=== PATIENT | female | born 1980 | race Caucasian/White ===

== ENCOUNTER 2017-01-26 16:32 | Observation (INO) ==
[2017-01-26] MEDS ORDERED: GLUCAGON SUBQ ONE (18:02)
--- NOTE | 2017-01-26 19:05 | PROVIDER DOCUMENTATION ---
HPI-EENT General - General Chief Complaint: Foreign Body Stated Complaint: COUGHING,CANT BREATHE,TROUBLING SWALLOWING Time Seen by Provider: 01/26/17 17:51 Source: patient Allergies/Adverse Reactions: Patient Allergies Allergy/AdvReac Type Severity Reaction Status Date / Time aspirin Allergy Mild RASH Verified 01/26/17 18:56 latex Allergy Mild RASH Verified 01/26/17 18:56 Penicillins Allergy Mild RASH Verified 01/26/17 18:56 Home Medications: Home Medication List Medication Instructions Recorded Confirmed Last Taken Type Citalopram Hydrobromide 20 mg PO DAILY 01/26/17 01/26/17 01/26/17 History [Citalopram HBr] - History of Present Illness-EENT General Nature of Presenting Problem: "I ATE SOME CHICKEN AND [place] FRIES ABOUT 2 THIS AFTERNOON AND I FELT LIKE IT GOT STUCK. I'VE HAD TROUBLE WITH THIS BEFORE AND I'VE HAD TO HAVE MY ESOPHAGUS STRETCHED." (ABOUT 3 YEARS AGO) EENT Location: reports: throat (REPORTS DIFFICULTY KEEPING SECRETIOND DOWN. "I CAN SWALLOW BUT IT JUST WON'T STAY DOWN.") Quality of Pain: reports: none Severity: reports: mild Timing: reports: still present Prearrival Treatment: Initiated no prearrival treatment Associated Symptoms: reports: denies symptoms, voice change (RASPY VOICE). denies: cough, drooling, facial pain/swelling Locality of Occurance: Home Similar Symptoms Previously?: Yes ("ESOPHAGUS NEEDED STRETCHING") Recently seen or treated by another doctor?: No - Eyes Eye Problem Context: reports: none - Ears Ear Problem Symptoms: reports: none - Nose Nose Problem Symptoms: nosebleed - Throat/Dental Throat/Dental Problem Symptoms: reports: none Recently seen a dentist or have an appointment?: No Review of Systems - Adult - REVIEW OF SYSTEMS - ADULT Constitutional: reports: no symptoms reported Eyes: reports: no symptoms reported Ears, Nose, Mouth & Throat: reports: see HPI Cardiovascular: reports: no symptoms reported Respiratory: reports: no symptoms reported Gastrointestinal: reports: see HPI Genitourinary: reports: no symptoms reported Musculoskeletal: reports: no symptoms reported Integumentary: reports: no symptoms reported Neurological: reports: no symptoms reported Psychiatric: reports: no symptoms reported Endocrine: reports: no symptoms reported Hematologic/Lymphatic: reports: no symptoms reported Allergic/Immunologic: reports: no symptoms reported All Other Systems: Reviewed and Negative Past History - Adult - PAST MEDICAL HISTORY-ADULT Review of Records: reports: Nursing Assessment Review, Medications Reviewed, Social history reviewed & non-contributory. Major Childhood Illnesses: reports: denies history Cardiovascular: reports: denies history Respiratory: reports: asthma Gastrointestinal: reports: GERD, other (ESOPHAGEAL DILATION--DR. JETER) Obstetrical/Gynecological: reports: denies history Genitourinary: reports: denies history Musculoskeletal: reports: denies history Neurological: reports: denies history Psychiatric: reports: depression Endocrine/Immune: reports: denies history Other Conditions: reports: denies history - PRIOR SURGERIES/PROCEDURES Surgical/Procedure History: reports: cholecystectomy, tonsillectomy, other ( FUNDOPLICATION) - PRIOR HOSPITALIZATIONS Prior Hospitalizations: reports: none - IMMUNIZATION STATUS Childhood Immunizations: See Nurse Assessment Flu Vaccine: See Nurse Assessment - FAMILY HISTORY Family History: CAD under 55yo - SOCIAL HISTORY Smoking: denies Substance Use: none/never Alcohol Use Frequency: never Living Situation: alone Physical Exam- EENT - Physical Exam EENT Initial Vital Signs Reviewed: Yes General Appearance: appears well, alert Progress - PLAN OF CARE/RESULTS Progress/Plan/Lab Results: Vital Signs - 8 hr 01/26/17 17:02 01/26/17 21:35 Temperature 99.4 F Pulse Rate 102 H 89 Respiratory Rate 18 19 Blood Pressure 154/97 135/95 O2 Sat by Pulse Oximetry 98 100 Laboratory Results - last 24 hr 01/26/17 01/26/17 20:15 20:15 WBC 12.77 H RBC 4.47 Hgb 13.3 Hct 40.8 MCV 91.3 MCH 29.8 MCHC 32.6 L RDW Std Deviation 14.4 Plt Count 283 MPV 10.2 Immature Gran % (Auto) 0.2 Neut % (Auto) 79.4 H Lymph % (Auto) 14.8 L Polk % (Auto) 4.0 Eos % (Auto) 1.4 Baso % (Auto) 0.2 Immature Gran # (Auto) 0.03 Neut # (Auto) 10.14 H Lymph # (Auto) 1.89 Polk # (Auto) 0.51 Eos # (Auto) 0.18 Baso # (Auto) 0.02 Sodium 142 Potassium 3.2 L Chloride 104 Carbon Dioxide 28 Anion Gap 10 BUN 8 Creatinine 0.6 Estimated GFR/1.73 m2 > 60 BUN/Creatinine Ratio 13 Glucose 141 H Calculated Osmolality 284 Calcium 8.8 Total Bilirubin 0.18 L AST 18 ALT 15 Alkaline Phosphatase 98 Total Protein 7.2 Albumin 4.0 Globulin 3.2 Albumin/Globulin Ratio 1.3 Orders Category Date Time Status Saline Loc NOW Care 01/26/17 18:01 Active CBC WITH DIFF [HEME] Stat Lab 01/26/17 20:15 Completed COMPREHENSIVE METABOLIC PANEL [CHEM] Stat Lab 01/26/17 20:15 Completed Glucagon Med 01/26/17 18:02 Discontinued 1 mg SUBQ NOW ONE Meperidine [Demerol] Med 01/26/17 19:57 Discontinued 50 mg IM NOW ONE INITIALLY DISCUSSED HISTORY, PRESENTATION AND FINDINGS WITH DR. LOJA. WILL GIVE GLUCAGON AND IF NO IMPROVEMENT, CALL GI. AFTER GLUCAGON--30 MIN[address]ES [address] CHALLENGE---CONTINUES ABLE TO SWALLOW BUT AFTER 5 MINUTES--VOMITS. 1958--SPOKE TO DR. JETER--DISCUSSED HISTORY, PRESENTATION AND FINDINGS -- AWARE OF NO IV AFTER MULTIPLE ATTEMPTS AND REQUESTS TO GIVE DEMEROL 50 MG IM THEN REST 30-45 MINUTES--TRY P.O. CHALLENGE. IF ABLE TO RETAIN FLUIDS WILL DO EGD OUTPATIENT TOMORROW. IF CONTINUES UNABLE TO RETAIN P.O., ADMIT TO HOSPITALIST --- CALL BACK TO INFORM DR. JETER EITHER WAY. DISCUSSED PLAN OF CARE WITH PATIENT AND FRIEND. [address] CHALLENGE - AFTER DEMEROL GIVEN FOR 45 MINUTES. SWALLOWS W/ O DIFFICULTY BUT AFTER 5 MINUTES VOMITS WATER. PAGED HOSPITALIST AND DR. JETER. Result Diagrams: 01/26/17 20:15 01/26/17 20:15 - CONSULTS/PCP/HOSPITALIST Notification #1 *Consult/PCP/Hospitalist*: DR. JOLLY Time Discussed: 09:35 Reason/Comments: ADMIT TO HOSPITALIST DR. JOLLY. DR. JETER CONSULT EGD IN AM. Consult Disposition: Admit Departure - Departure Date of Disposition Decision: 01/26/17 Time of Disposition Decision: 21:26 DIAGNOSIS: Sensation of foreign body in esophagus Disposition: ADMITTED INPATIENT 09 Certified Medical Emergency: Emergent Condition: Stable Referrals and Follow-Ups: IZZY,KELLIE L., CREDIT AND COLLECTIONS ANALYST [Primary Care Provider] - - Critical Care Note This patient required my direct & personal management of CC.: No
[2017-01-26] MEDS ORDERED: DEMEROL IM ONE (19:57)
[2017-01-26 20:16] LABS: MANUAL DIFF NEEDED? NO
[2017-01-26 20:32] LABS: BASO% 0.2 % (0.0-0.8); EOS# 0.18 X1000 (0.0-0.7); EOS% 1.4 % (0.0-10.0); HEMATOCRIT 40.8 % (37.0-47.0); HEMOGLOBIN 13.3 g/dL (12.0-16.0); IMM GRAN# 0.03 X1000 (0.0-0.04); IMM GRAN% 0.2 % (0.0-0.5); LYMPH# 1.89 X1000 (1.2-3.4); LYMPH% 14.8 % (20.5-51.1); MCH 29.8 PG (27-31); MCHC 32.6 g/dL (33-37); MCV 91.3 FL (81-99); MONO# 0.51 X1000 (0.11-0.59); MPV 10.2 FL (7.4-10.4); NEUT% 79.4 % (42.2-75.2); PLT 283 X1000 (130-400); RBC 4.47 XMIL (4.2-5.4)
[2017-01-26 20:44] LABS: AGAP 10; ALKALINE PHOSPHATASE 98 U/L (32-104); BUN 8 mg/dL (8-22); CALCIUM 8.8 mg/dL (8.8-10.2); CHLORIDE 104 mmol/L (98-107); COSMO 284; GOT 18 U/L (10-30); GPT 15 U/L (10-36); POTASSIUM 3.2 mmol/L (3.5-5.1); SODIUM 142 mmol/L (136-145); TCO2 28 mmol/L (25-35); TOTAL BILIRUBIN 0.18 mg/dL (0.20-1.00); TOTAL PROTEIN 7.2 g/dL (6.3-8.3)
[2017-01-26] MEDS ORDERED: ZOFRAN PO ONE (21:40)
[2017-01-26] MEDS ORDERED: ZOFRAN ODT PO ONE (21:49)
[2017-01-26] MEDS ORDERED: ZOFRAN IV PRN (23:12)
[2017-01-26 23:35] LABS: HEMOGLOBIN A1C 4.7 % (4.8-6.0)
[2017-01-27] MEDS: POTASSIUM CHLORIDE 20 MEQ/SWI 20 MEQ/100 ML IVPB IV SCH ×2 (00:28→04:01)
[2017-01-27] MEDS: NS 1,000 ML IV SCH ×2 (00:28→08:15)
[2017-01-27] MEDS: MORPHINE IV PRN ×2 (00:38→08:14)
[2017-01-27] MEDS ORDERED: PROTONIX IV SCH (01:30)
[2017-01-27] MEDS ORDERED: SODIUM CHLORIDE 0.9% INJ SCH (01:30)
--- NOTE | 2017-01-27 03:13 | HISTORY AND PHYSICAL ---
PRIMARY CARE PROVIDER: Dr. Farrar in [place]. CHIEF COMPLAINT: Difficulty swallowing. HISTORY OF PRESENT ILLNESS: A 36-year-old female with a history of achalasia status post Heller myotomy who presents to the emergency room after eating chicken and comor[place] fries around 2 p.m. today. She felt as if her food did not go down totally. She had vomiting and then subsequent shortness of breath secondary to frequent vomiting. She came into the emergency room secondary to having a history of this and was feeling as if she still had a food impaction in her esophagus. Dr. Moreno was spoken to, who is her primary military source operations specialist. She received glucagon as well as Demerol in the emergency room hoping that this would relax the esophagus. It did not. Dr. Moreno will be consulted and the patient will be admitted for further evaluation and treatment. REVIEW OF SYSTEMS: Fourteen point review of systems conducted with the patient. Pertinent positives listed above in the HPI. All other systems reviewed and found to be negative. PAST MEDICAL HISTORY: 1. Achalasia. 2. Depression. 3. Asthma. 4. Obesity. PREVIOUS SURGICAL HISTORY: 1. Cholecystectomy. 2. Esophageal dilation. 3. Heller myotomy. 4. Duarte gastrostomy. 5. Witzel feeding jejunostomy placement. 6. Tonsillectomy. SOCIAL HISTORY: No history of tobacco, alcohol or illicit drug use or abuse. FAMILY HISTORY: Mother and brother both had diabetes mellitus, hypertension and congestive heart failure. Brother at age 47 from a massive myocardial infarction. ALLERGIES: Aspirin, penicillin and latex. HOME MEDICATIONS: Celexa 20 mg p.o. daily and multivitamin 1 p.o. daily. PHYSICAL EXAMINATION: VITAL SIGNS: Temperature 99.4 degrees, pulse 89, respirations 19, blood pressure 135/95, oxygen saturation 100% on room air. GENERAL: Pleasant 36-year-old female lying in the ER stretcher. Answers all questions appropriately. In no acute distress. HEENT: Head is atraumatic, normocephalic. Pupils equal, round, reactive to light. Extraocular eye movement intact. Sclerae is anicteric. Conjunctivae is pink. Oral mucosa is moist. NECK: Supple. No JVD. No thyromegaly. Trachea is midline. No cervical lymphadenopathy. CARDIAC: Regular rate and rhythm. S1-S2 appreciated. No murmurs, gallops, rubs. LUNGS: Clear to auscultation bilaterally. No rhonchi, wheezes or rales. Symmetrical rise and fall with respirations. ABDOMEN: Protuberant, soft, nondistended, nontender. Bowel sounds present in all 4 quadrants, normoactive. No pulsatile mass. No organomegaly. EXTREMITIES: No clubbing, cyanosis, or edema. 2+ pedal pulses bilaterally. NEUROLOGICAL: Alert and oriented x3. Cranial nerves 2-12 grossly intact. LABORATORY DATA: WBC 12.77, hemoglobin 13.3, hematocrit 40.8, platelet count 283,000. Sodium 142, potassium 3.2, chloride 102, carbon dioxide 28, BUN 8, creatinine 0.6, glucose 141. ASSESSMENT AND PLAN: 1. Dysphagia with a history of achalasia and previous Heller myotomy. 2. Probable food impaction. 3. Hypokalemia. 4. Depression. PLAN: Admit patient to the medical floor. We will treat hypokalemia with 40 mEq of KCl. Consult Dr. Moreno for endoscopy. Hold patient NPO. Normal saline at 100 mL an hour. Zofran as needed for nausea. Further recommendation based on patient clinical course. Dictated by GILBERT Jovel for Moses Gurrola MD cc: GILBERT Jovel MD Babu Kantamneni, MD Natalie McCay pt examined, agree with above, hopefully after EGD tomorrow [facility] MTDD
[2017-01-27 06:50] LABS: MANUAL DIFF NEEDED? NO
[2017-01-27 06:54] LABS: BASO% 0.3 % (0.0-0.8); EOS% 2.3 % (0.0-10.0); HEMATOCRIT 39.6 % (37.0-47.0); HEMOGLOBIN 12.9 g/dL (12.0-16.0); LYMPH# 2.26 X1000 (1.2-3.4); LYMPH% 25.8 % (20.5-51.1); MCH 29.9 PG (27-31); MCHC 32.6 g/dL (33-37); MCV 91.7 FL (81-99); MONO# 0.67 X1000 (0.11-0.59); MONO% 7.6 % (1.7-9.3); MPV 10.3 FL (7.4-10.4); PLT 260 X1000 (130-400); RBC 4.32 XMIL (4.2-5.4)
[2017-01-27 07:15] LABS: AGAP 9; BUN 6 mg/dL (8-22); CALCIUM 8.8 mg/dL (8.8-10.2); CHLORIDE 103 mmol/L (98-107); COSMO 274; POTASSIUM 4.4 mmol/L (3.5-5.1); SODIUM 139 mmol/L (136-145); TCO2 27 mmol/L (25-35)
[2017-01-27] MEDS ORDERED: DIPRIVAN 1% ONE ×2 (11:46→12:01)
[2017-01-27] MEDS ORDERED: XYLOCAINE-MPF 2% ONE (11:47)
[2017-01-27] MEDS ORDERED: QUELICIN (DOSE) ONE (12:30)
[2017-01-27] MEDS ORDERED: DECADRON ONE (12:31)
[2017-01-27] MEDS ORDERED: ZOFRAN ONE (12:31)
[2017-01-27] MEDS ORDERED: VERSED ONE (12:32)
[2017-01-27] MEDS ORDERED: ROBINUL ONE (12:41)
[2017-01-27 15:28] VITALS: BP 128/87
--- NOTE | 2017-01-28 16:50 | DISCHARGE SUMMARY ---
ADMISSION DATE: 01/26/2017 DISCHARGE DATE: 01/27/2017 FINAL DISCHARGE DIAGNOSES: 1. Food impaction. 2. Depression. 3. Morbid obesity. CONSULTATIONS REQUESTED DURING THIS HOSPITAL STAY: GI consultation with Dr. Suyapa Moreno MD. HOSPITAL COURSE: Ms. Chang is a 36-year-old female with a history of achalasia, status post Heller myotomy, who presented to the ER after getting some food stuck in her esophagus. The patient was admitted to the hospitalist service and made NPO. Today the patient underwent an EGD with extraction of the of food impaction. The patient did well after the procedure and was cleared for discharge home by the night shift manager. FOLLOWUP INSTRUCTIONS: The patient has been advised to follow up with her primary night shift manager next week. cc: Guera Mccormick MD
--- NOTE | 2017-02-18 16:13 | OPERATIVE NOTE ---
PROCEDURE DATE: PROCEDURES: 1. Esophagogastroduodenoscopy, esophagoscopy with overtube. 2. Esophageal suction from foreign body. 3. Achalasia of the esophagus, dilated. PREOPERATIVE DIAGNOSIS: Dysphagia. POSTOPERATIVE DIAGNOSIS: Achalasia of the esophagus with massive dilation of the esophagus with food impaction. DESCRIPTION OF PROCEDURE: After informed consent and adequate intravenous sedation, the patient was put in lateral decubitus and regular esophagogastroscopy was introduced and it was found patient esophagus was full of food. At this point, I have requested Anesthesia to do endotracheal intubation to cover the trachea from aspirating the material. The scopes were changed. At this point, a rigid overtube was introduced with the therapeutic gastroscope inside. While applying suction, the rigid overtube was passed all the way into the EG junction. The entire esophagus was cleared with suction and the tube along with the rigid scope and 90% of the material was suctioned. At this point, the rigid tube was removed along with the scope. Patient was extubated. Patient tolerated procedure well without any immediate complications. The patient had a history of achalasia. She had Heller myotomy with stem; however, the patient has a recurrence. I will discuss with Dr. Ogden for further evaluation. She might need resection of the affected distal esophageal segment. I have talked to Dr. Ogden. He will see her in the office in the next couple of days. cc: Suyapa Moreno MD
== END 2017-01-27 16:16 | disposition home or self-care (01) ==
LOC: ED 16:32 → INTOOBSV 23:06 → 4N 23:06 → SUATTDRO 23:06
PROVIDERS: ATTEND Internal Medicine